=== PATIENT | male | born 1960 | race Caucasian/White ===

== ENCOUNTER 2018-03-22 00:58 | Inpatient (IN) | payer OTHER ==
[2018-03-21 13:25] LABS: INR 0.91
--- NOTE | 2018-03-21 20:04 | HISTORY AND PHYSICAL ---
DATE OF ADMISSION: March 22, 2018 IDENTIFICATION AND CHIEF COMPLAINT Herb is a 56-year-old gentleman with the chief complaint of bilateral knee pain and disability, progressively painful and refractory to conservative care. PAST MEDICAL HISTORY * Hypertension, controlled on medication. * Remote history of bronchitis. * Remote history of tonsillitis. * Occasional reactive airway disease, induced by dander. * Type 2 diabetes. PAST SURGICAL HISTORY * Colonoscopy. ALLERGIES He has no known drug allergies. CURRENT MEDICATIONS * Albuterol inhaler p.r.n. * Losartan 100 mg p.o. q. day. * Metformin 500 mg p.o. b.i.d. * Simvastatin 40 mg p.o. q. day. * Tamsulosin 0.4 mg p.o. q. day. FAMILY HISTORY Noncontributory. SOCIAL HISTORY Negative for tobacco and alcohol use. He did chew for about 10 years, but quit six years ago. He has a remote history of social drinking. He does not drink at all presently. PHYSICAL EXAMINATION GENERAL: This gentleman is a well-developed, well-nourished male, appears stated age. HEENT: Normocephalic, atraumatic. NECK: Supple. LUNGS: Clear. HEART: Regular. ABDOMEN: Soft. ORTHOPEDIC: Knees both have effusion present and crepitus noted. He is stiff at end-range. Gross stability is intact. Extensor function intact. Skin is in good condition. Calves nontender. Neurovascular function intact distally. RADIOGRAPHS Demonstrate bilateral end-stage knee DJD. ASSESSMENT * Bilateral knee end-stage degenerative joint disease, progressively painful and debilitating, refractory to conservative care. PLAN Patient has opted to proceed with single-stage bilateral knee replacement. Nature of this procedure, risks, benefits, and nonoperative alternatives are reviewed, as well as the relative risks and benefits of staged versus single stage knee replacement. The risks of the procedure include, but are not limited to , major medical or anesthetic complication, infection, neurovascular injury, blood transfusion, stiffness, scarring, fracture, tendon rupture, instability, implant loosening, migration, or failure, persistent or recurrent pain, need for additional surgery, and other unforeseen. He understands and wishes to proceed. Signed permit is placed in the chart. No guarantees are given or implied. [facility]
[2018-03-22] VITALS (13 sets, daily range): BP systolic 130–180; BP diastolic 91–108
[~2018-03-22] VITALS: Ht 170.2 cm; Wt 123.4 kg
[~2018-03-22 00:58] MED LIST: ACETAMINOPHEN 500 MG TAB PO ONE; ALBU8.5H IH; CELECOXIB 200 MG CAP PO ONE; DOXY-179 PO; FAMOTIDINE 20 MG TAB PO ONE; FLUT16SP19 NS; LIDOCAINE/SOD BICARB 8.4% SYR ID ONE; LOSA100T67 PO; METF-411 PO; MIDAZOLAM 2 MG/2 ML VIAL IVP PRN; NORMOSOL R SOLN(*) 1000 ML BAG 1,000 ML IV PRN; PREGABALIN 150 MG CAPSULE PO ONE; SIMV-54 PO; TAMS0.4C25 PO; TRANEXAMIC AC 1000 MG/10ML SDV 1,000 MG in DEXTROSE 5% 50 ML BAG 50 ML IV ONE; ceFAZolin(*) 2GM/D5W 50ML 50 ML IVPB ONE; cloNIDine EPIDUR INJ 100MCG/ML 40 MCG, ROPIVACAINE 0.5% 20 ML VIAL 25 ML, EPINEPHrine H... INJ ONE
[2018-03-22] MEDS ORDERED: LIDOCAINE MPF 1% 5 ML VIAL ONE (10:51)
[2018-03-22] MEDS ORDERED: fentaNYL CITR 100 MCG/2 ML AMP ONE ×3 (10:51→17:12)
[2018-03-22] MEDS ORDERED: PROPOFOL EMUL(*) 10MG/ML 20 ML 20 ML ONE (10:51)
[2018-03-22] MEDS ORDERED: ONDANSETRON 4 MG/2 ML VIAL ONE ×2 (10:51)
[2018-03-22] MEDS ORDERED: DEXAMETHASONE SOD 4 MG/ML VIAL ONE ×2 (10:51)
[2018-03-22] MEDS ORDERED: KETAMINE HCL 500 MG/10 ML VIAL ONE (10:56)
[2018-03-22] MEDS ORDERED: ACETAMINOPHEN 500 MG TAB PO ONE (11:15)
[2018-03-22] MEDS ORDERED: PREGABALIN 150 MG CAPSULE PO ONE (11:15)
[2018-03-22] MEDS ORDERED: cloNIDine EPIDUR INJ 100MCG/ML 40 MCG, ROPIVACAINE 0.5% 20 ML VIAL 25 ML, EPINEPHrine H... INJ ONE ×2 (11:15)
[2018-03-22] MEDS ORDERED: FAMOTIDINE 20 MG TAB PO ONE (11:15)
[2018-03-22] MEDS ORDERED: MIDAZOLAM 2 MG/2 ML VIAL IVP PRN (11:15)
[2018-03-22] MEDS ORDERED: NORMOSOL R SOLN(*) 1000 ML BAG 1,000 ML IV PRN ×2 (11:15→16:40)
[2018-03-22] MEDS ORDERED: LIDOCAINE/SOD BICARB 8.4% SYR ID ONE (11:15)
[2018-03-22] MEDS ORDERED: TRANEXAMIC AC 1000 MG/10ML SDV 1,000 MG in DEXTROSE 5% 50 ML BAG 50 ML IV ONE (11:15)
[2018-03-22] MEDS ORDERED: CELECOXIB 200 MG CAP PO ONE (11:15)
[2018-03-22] MEDS ORDERED: ceFAZolin(*) 2GM/D5W 50ML 50 ML IVPB ONE (11:15)
[2018-03-22] MEDS ORDERED: FLUSH 10 ML SYR IVP PRN (16:40)
[2018-03-22] MEDS ORDERED: BENZOCAINE/MENTHOL 1 EACH LOZG PO PRN (16:40)
[2018-03-22] MEDS ORDERED: diphenhydrAMINE 50 MG/ML VIAL IVP PRN (16:40)
[2018-03-22] MEDS ORDERED: ZOLPIDEM TARTRATE 5 MG TAB PO PRN (16:40)
[2018-03-22] MEDS ORDERED: diphenhydrAMINE 25 MG CAP PO PRN (16:40)
[2018-03-22] MEDS ORDERED: ACETAMINOPHEN 325 MG TAB PO PRN (16:40)
[2018-03-22] MEDS ORDERED: PROMETHAZINE 25 MG/ML 1 ML AMP IVP PRN (16:40)
[2018-03-22] MEDS ORDERED: BISACODYL 10 MG SUPP PR PRN (16:40)
[2018-03-22] MEDS ORDERED: MAGNESIUM HYDROXIDE* 30ML UDCP PO PRN (16:40)
--- NOTE | 2018-03-22 17:10 | RADIOLOGY IMAGING REPORT ---
FACILITY: [facility] [place] PATIENT NAME: Herb Hubbard : 1960 MR: [id number] V: [id number] EXAM DATE: ORDERING PHYSICIAN: SREEKANTH DUGAN TECHNOLOGIST: [place] [facility] [place] Herb Hubbard : 1960 Visit/Account:[id number] Date of Sevice: 03/22/2018 Exam type: KNEE LIMITED RIGHT History: POST OP BILATERAL TKA Comparison: None. Findings: AP and lateral views of the right knee demonstrate a right knee arthroplasty in good anatomic alignme nt. Soft tissue gas and skin rom project over the anterior aspect this postoperative knee IMPRESSION: 1. As above Report Dictated By: Danika Ramirez MD at 03/22/2018 5:07 PM Report E-Signed By: Danika Ramirez MD at 03/22/2018 5:07 PM WSN:[email or web address]
--- NOTE | 2018-03-22 17:11 | RADIOLOGY IMAGING REPORT ---
FACILITY: [facility] - [place] PATIENT NAME: Herb Hubbard : 1960 MR: [id number] V: [id number] EXAM DATE: ORDERING PHYSICIAN: SREEKANTH DUGAN TECHNOLOGIST: Location: [facility] Patient: Herb Hubbard : 1960 Visit/Account:[id number] Date of Sevice: 03/22/2018 Exam type: KNEE LIMITED LEFT History: POST OP BILATERAL TKA Comparison: June 14, 2015. Findings: AP and lateral views left knee demonstrate a left knee arthroplasty in good anatomic alignment. Soft tissue gas and skin rom project over the anterior aspect of this postoperative knee IMPRESSION: 1. As above Report Dictated By: Danika Ramirez MD at 03/22/2018 5:07 PM Report E-Signed By: Danika Ramirez MD at 03/22/2018 5:08 PM WSN:[email or web address]
[2018-03-22] MEDS ORDERED: ALBUTEROL 8 GM INHALER INH PRN (18:15)
[2018-03-22] MEDS: CELECOXIB 200 MG CAP PO SCH (18:16)
[2018-03-22] MEDS: APAP/HYDROCODONE 325/7.5 TAB PO PRN (18:17)
--- NOTE | 2018-03-22 18:19 | Hospitalist Consultation ---
History of Present Illness Requesting Physician Dr. Mora Reason for Consult HTN, DM2, Asthma Chief Complaint s/p bilateral knee replacements History of Present Illness He was admitted s/p bilateral knee replacements. It is reported the surgery went well and without complications. History Problems: (1) Type 2 diabetes mellitus Status: Chronic (2) Hypertension Status: Chronic (3) Hyperlipidemia Status: Chronic (4) Asthma Status: Chronic Home Meds Reported Medications Tamsulosin Hcl (FLOMAX) 0.4 Mg Cap.er.24h, 0.4 MG PO HS, CAP 02/28/18 Simvastatin (SIMVASTATIN) 40 Mg Tablet, 40 MG PO HS, TAB 02/28/18 Metformin Hcl (METFORMIN HCL) 500 Mg Tablet, 2 TAB PO BID, TAB 02/28/18 Losartan Potassium (LOSARTAN POTASSIUM) 100 Mg Tablet, 100 MG PO QDAY 02/28/18 Albuterol Sulfate 90 Mcg/Act (PROAIR HFA 90 MCG/ACT) 8.5 Gm Hfa.aer.ad, 1 PUFF IH PRN, INHALER 02/28/18 Fluticasone Prop 50 Mcg Ns (FLONASE 50 MCG NS) 16 Gm [place].susp, 1 SPRAY NS BID , BOT 02/28/18 Allergies: Coded Allergies: No Known Drug Allergies (Unverified , 02/28/18) Patient History: Patient reports no known family medical history. Hx Smoking: No (CHEWED FOR ABOUT 10 YRS, QUIT 2015) Caffeine Intake: Coffee Caffeine/Cups Per Day: 3 CPD Hx Alcohol Use: No Hx Substance Use Disorder: No Review of Systems All Systems Reviewed/Normal: Yes, Except as Noted Exam Vital Signs Vital Signs Date Time Temp Pulse Resp B/P (MAP) Pulse Ox O2 Delivery O2 Flow Rate FiO2 03/22/18 17:59 95 Nasal Cannula 4.0 03/22/18 17:59 97.6 78 16 157/97 (117) General Appearance: Alert, Awake, No Acute Distress, Afebrile Neuro: No Gross deficits Cardiovascular: Regular Rate and Rhythm Respiratory: No Respiratory Distress, Clear to Auscultation Extremities: Warm, Perfused Psych: Alert & Oriented X3, Appropriate Mood & Affect Assessment and Plan Problems: (1) Status post bilateral knee replacements Status: Acute Assessment & Plan: Followed by Dr. Mora. He will be placed on Aspirin 325mg daily for DVT prophylaxis. He has no history of DVT or PE. (2) Type 2 diabetes mellitus Status: Chronic Assessment & Plan: He is on chronic treatment with Metformin. This will be held at this time. He will be started on SSI level 2 and AC/HS blood sugars. (3) Hypertension Status: Chronic Assessment & Plan: He is on chronic treatment with Losartan. This has been restarted with hold parameters. (4) Hyperlipidemia Status: Chronic Assessment & Plan: He is on chronic treatment with Simvastatin. (5) Asthma Status: Chronic Assessment & Plan: He uses albuterol as needed. (6) Morbid obesity with BMI of 40.0-44.9, adult Status: Chronic Venous Thromboembolism Antithrombotics Is Pt On Any Antithrombotics?: No Exam Sepsis Risk: No Definite Risk MIKKI DALTON SCRAPER OPERATOR Mar 22, 2018 18:19
[2018-03-22] MEDS: DIAZEPAM 5 MG TAB PO PRN (19:43)
[2018-03-22] MEDS: SIMVASTATIN 40 MG TAB PO SCH (20:17)
[2018-03-22] MEDS: TAMSULOSIN HCL 0.4 MG CAP PO SCH (20:17)
[2018-03-22] MEDS: FLUTICASONE PROP 0.05% 16 GM SCH (20:18)
[2018-03-22] MEDS: INSULIN HUM LISPRO 100 UN/ML 3 ML VIAL SUBQ PRN (20:22)
--- NOTE | 2018-03-22 20:58 | OPERATIVE REPORT 1 ---
EVENT DATE: March 22, 2018 SURGEON: Sushil Mora MD ANESTHESIOLOGIST: Gio Ca MD ANESTHESIA: General plus spinal. CLOTH COLORS EXAMINER: David Harris PA-C and MONI Hillman PREOPERATIVE DIAGNOSIS Bilateral knee degenerative joint disease. POSTOPERATIVE DIAGNOSIS Bilateral knee degenerative joint disease. PROCEDURE PERFORMED Bilateral single-stage total knee arthroplasty. ESTIMATED BLOOD LOSS Minimal. DRAINS None. SPECIMENS None. COMPLICATIONS None apparent. TOURNIQUET TIME 69 minutes on the left knee, 53 minutes on the right knee. IMPLANTS USED Implants on the left are the Herminia Triathlon knee system with 5 left PS femur , 5 standard tibial baseplate, 36 mm universal, symmetric, all-polyethylene patellar button, and a 16 mm tibial tray liner. Polyethylene is X3. On the right side, we have a #5 right PS femur, a #5 standard tibial baseplate, a 36 mm universal, symmetric, all-polyethylene patellar button, and a 13 mm PS tibial tray liner. Polyethylene is X3. INDICATIONS Herb is a 57-year-old gentleman with incapacitating pain and disability related to end-stage knee arthritis. Surgery is indicated to relieve symptoms after failure of nonoperative measures. DESCRIPTION OF PROCEDURE The patient was taken to the operating room. He was placed supine on the operating table. General anesthesia was induced after a spinal block was administered by the anesthesiologist. Antibiotics and TXA were administered IV. Both lower extremities simultaneously were prepped and draped in the usual sterile fashion for orthopedic surgery. The right leg was covered with a stockinette, and the left knee was operated on first. The limb was exsanguinated with an Esmarch bandage. Tourniquet inflated to 275 mmHg. Midline longitudinal incision made, carried down through the skin and subcutaneous tissue to the extensor mechanism. Full-thickness flaps were developed far enough medially to allow medial parapatellar arthrotomy be performed. Patella was everted. The knee was brought into the flexed position. Fat pad, anterior horns of the menisci, and the cruciate ligaments are debrided. A subperiosteal medial released is initiated in a titrated fashion to start to balance the varus knee. A step drill is used to enter the distal femur. A 10-inch long alignment guide is used to engage the isthmus, cut set for 5 degrees of valgus relative to the anatomic axis. A 10 mm resection block is applied, pinned, and cuts made with an oscillating saw. AP sizing guide is applied to the distal femoral cut, positioned for 3 degrees of external rotation relative to the posterior condyles. The size 5 is optimal without risk of notching. The four-in-one cutting block is applied. Anterior, posterior, posterior chamfer, and anterior chamfer cuts are made respectively. PS block is applied and centered. Medial and lateral bone is removed through the box. Trial femur has nice [id number] fit. Attention is turned to tibial preparation. The extramedullary guide is applied, positioned for varus, valgus, posterior slope, and rotation. This is set to take 9 mm from the relatively intact lateral tibial plateau. It is dropped down a millimeter or so to ensure an adequate cut. Block is pinned, extramedullary alignment check is made, and cuts made with an oscillating saw. There is a tiny area of severe posteromedial erosion that is not at the level of the cup, but it is felt better for bone preservation not to take additional bone and certainly adequate support for the baseplate. Here, a size 5 baseplate will be optimal without risk of overhang after removal of osteophytes. Trial tibia with the trial liner and the trial femur inserted. Knee was brought to full extension. Patella is taken from a starting thickness of 24 to a residual of 15 with a patellar clamp and oscillating saw. The 36 provides optimum bony coverage without soft tissue overhang. Lug holes are drilled. Patella tracks well with the no-touch technique. Final tibial preparation consists of assuring appropriate rotational and translational positioning of the component. The boss is reamed, and the fins are punched. Surfaces are copiously lavaged. Sclerotic bone is perforated with a small drill bit to facilitate cement interdigitation. All components cemented in a single stage. Once the cement is fully polymerized, tourniquet is deflated. Hemostasis is assured. Wound is copiously lavaged to remove all loose debris. The 16 PS liner fills up the gap ideally, allowing the knee to drop to full extension without hyperextension, providing optimal soft tissue tension and stability. Tray is lavaged and dried. The actual liner is locked into the baseplate. Arthrotomy is closed in flexion with #2 Ethibond. While the last few stitches are placed in the arthrotomy, the contralateral knee is approached. Further closure on the left knee consists of irrigation and 3-0 Vicryl for the dermis and surgical rom for the skin. An identical procedure is performed on the right knee with the exception that only a 13 PS tibial tray liner is needed to fill up the gap to allow the ideal soft tissue balance. The 13 PS liner is used and, of course, a right-sided femoral implant is used on the right knee versus a left on the left side. At the completion of the procedure, both knees are sterilely dressed. Patient is awakened from anesthesia having tolerated the procedure well. He is transferred to the recovery room in stable condition. Plan is for standard TKA rehab protocol. TRINO
[2018-03-22] MEDS: ceFAZolin(*) 1 GM VIAL 1 GM in NS(*) 0.9% 100 ML ADDVANT BAG 100 ML IVPB SCH (21:04)
[2018-03-23] VITALS (8 sets, daily range): BP systolic 110–148; BP diastolic 74–95; Ht 170.2 cm; Wt 123.4 kg
[2018-03-23] MEDS: APAP/HYDROCODONE 325/7.5 TAB PO PRN ×5 (00:38→20:34)
[2018-03-23] MEDS: DIAZEPAM 5 MG TAB PO PRN ×3 (02:58→19:38)
[2018-03-23] MEDS: ceFAZolin(*) 1 GM VIAL 1 GM in NS(*) 0.9% 100 ML ADDVANT BAG 100 ML IVPB SCH ×2 (04:15→12:28)
[2018-03-23] MEDS: CELECOXIB 200 MG CAP PO SCH ×2 (07:32→16:43)
[2018-03-23] MEDS: ASPIRIN 325 MG TAB PO SCH (08:34)
[2018-03-23] MEDS: FLUTICASONE PROP 0.05% 16 GM SCH ×2 (08:34→20:34)
[2018-03-23] MEDS ORDERED: LOSARTAN POTASSIUM 50 MG TAB PO SCH (09:00)
--- NOTE | 2018-03-23 10:54 | Hospitalist Progress Note ---
Subjective Progress Notes Subjective He has no complaints this morning. He had no acute events overnight. Patient Complains of: Cardiovascular: No: Chest Pain Respiratory: No: Shortness of Breath Physical Exam Vital Signs Date Time Temp Pulse Resp B/P (MAP) Pulse Ox O2 Delivery O2 Flow Rate FiO2 03/23/18 07:43 93 Nasal Cannula 2.0 03/23/18 07:35 98.0 79 18 138/95 (109) Intake and Output 03/24/18 01:00 Intake Total 1750 ml Output Total 1670 ml Balance 80 ml Intake Oral 1650 ml IV Total 100 ml Output Urine Total 1670 ml # Voids 4 General Appearance: Alert, Awake, No Acute Distress, Afebrile Neuro: No Gross deficits Cardiovascular: Regular Rate and Rhythm Respiratory: No Respiratory Distress, Clear to Auscultation GI: Soft and Non-Tender Psych: Alert & Oriented X3, Appropriate Mood & Affect Assessment and Plan Problems: (1) Status post bilateral knee replacements Status: Acute Assessment & Plan: Followed by Dr. Mora. He will be placed on Aspirin 325mg daily for DVT prophylaxis. He has no history of DVT or PE. (2) Type 2 diabetes mellitus Status: Chronic Assessment & Plan: He is on chronic treatment with Metformin. This will be held at this time. He will be started on SSI level 2 and AC/HS blood sugars. (3) Hypertension Status: Chronic Assessment & Plan: He is on chronic treatment with Losartan. This has been restarted with hold parameters. (4) Hyperlipidemia Status: Chronic Assessment & Plan: He is on chronic treatment with Simvastatin. (5) Asthma Status: Chronic Assessment & Plan: He uses albuterol as needed. (6) Morbid obesity with BMI of 40.0-44.9, adult Status: Chronic Exam Sepsis Risk: No Definite Risk MIKKI DALTONP Mar 23, 2018 10:54
[2018-03-23] MEDS: INSULIN HUM LISPRO 100 UN/ML 3 ML VIAL SUBQ PRN ×2 (11:18→20:40)
[2018-03-23] MEDS: TAMSULOSIN HCL 0.4 MG CAP PO SCH (20:34)
[2018-03-23] MEDS: SIMVASTATIN 40 MG TAB PO SCH (20:34)
[2018-03-24] MEDS: APAP/HYDROCODONE 325/7.5 TAB PO PRN ×2 (02:36→07:35)
[2018-03-24 02:38] VITALS: BP 164/100
[2018-03-24 05:46] LABS: PLATELET COUNT, AUTOMATED 169 K/uL (150-450)
[2018-03-24 07:30] VITALS: BP 131/83
[2018-03-24] MEDS: CELECOXIB 200 MG CAP PO SCH (07:34)
[2018-03-24] MEDS: ASPIRIN 325 MG TAB PO SCH (08:19)
[2018-03-24] MEDS: FLUTICASONE PROP 0.05% 16 GM SCH (08:19)
[2018-03-24] MEDS ORDERED: metFORMIN HCL 500 MG TAB PO SCH (09:00)
[2018-03-24] MEDS ORDERED: LOSARTAN POTASSIUM 50 MG TAB PO SCH (09:00)
--- NOTE | 2018-03-24 11:22 | Hospitalist Progress Note ---
Subjective Progress Notes Subjective He has no complaints this morning. He had no acute events overnight. Patient Complains of: Cardiovascular: No: Chest Pain Respiratory: No: Shortness of Breath Physical Exam Vital Signs Date Time Temp Pulse Resp B/P (MAP) Pulse Ox O2 Delivery O2 Flow Rate FiO2 03/24/18 09:37 Nasal Cannula 03/24/18 07:44 93 3.0 03/24/18 07:30 98.1 90 19 131/83 (99) Intake and Output 03/25/18 01:00 Intake Total 640 ml Output Total 1170 ml Balance -530 ml Intake Oral 640 ml Output Urine Total 1170 ml # Voids 2 General Appearance: Alert, Awake, No Acute Distress, Afebrile Neuro: No Gross deficits Cardiovascular: Regular Rate and Rhythm Respiratory: No Respiratory Distress, Clear to Auscultation GI: Soft and Non-Tender Psych: Alert & Oriented X3, Appropriate Mood & Affect Result Diagram: 03/24/18 0511 Assessment and Plan Problems: (1) Status post bilateral knee replacements Status: Acute Assessment & Plan: Followed by Dr. Mora. He will be placed on Aspirin 325mg daily for DVT prophylaxis. He has no history of DVT or PE. He will be transferred to [facility] for further rehabilitation. (2) Type 2 diabetes mellitus Status: Chronic Assessment & Plan: He is on chronic treatment with Metformin. He will be restarted on Metformin this morning. (3) Hypertension Status: Chronic Assessment & Plan: He is on chronic treatment with Losartan. This has been restarted with hold parameters. (4) Hyperlipidemia Status: Chronic Assessment & Plan: He is on chronic treatment with Simvastatin. (5) Asthma Status: Chronic Assessment & Plan: He uses albuterol as needed. (6) Morbid obesity with BMI of 40.0-44.9, adult Status: Chronic Exam Sepsis Risk: No Definite Risk MIKKI DALTON [facility] Mar 24, 2018 11:22
== END 2018-03-24 10:15 | DRG 462 ==
LOC: OR 00:58 → MED 17:50
PROVIDERS: ADMIT Orthopaedic Surgery; ATTEND Orthopaedic Surgery
PROC: 0SRC0J9 Replacement of Right Knee Joint with Synthetic Substitute, Cemented, Open Approach (ICD-10-PCS; 2018-03-22)
PROC: 0SRD0J9 Replacement of Left Knee Joint with Synthetic Substitute, Cemented, Open Approach (ICD-10-PCS; principal; 2018-03-22 12:58)
DX: M17.0 Bilateral primary osteoarthritis of knee (principal); Z68.41 Body mass index [BMI] 40.0-44.9, adult; I10 Essential (primary) hypertension; E78.5 Hyperlipidemia, unspecified; J45.909 Unspecified asthma, uncomplicated; G47.33 Obstructive sleep apnea (adult) (pediatric); E11.9 Type 2 diabetes mellitus without complications; E66.01 Morbid (severe) obesity due to excess calories; Z79.84 Long term (current) use of oral hypoglycemic drugs; Z87.891 Personal history of nicotine dependence
CPT/HCPCS: 36415; 36416; 82948; 85025; 85610; 86850; 86900; 86901; 97161; J0171; J0690; J0735; J1100; J1885; J2001; J2250; J2405; J2704; J2795; J3010; J3490; J3535; J7050; J7060

== ENCOUNTER → 2018-03-23 | Outpatient (CLI) | payer OTHER ==
[~2018-03-23] MED LIST changes: -ACETAMINOPHEN 500 MG TAB PO ONE; -CELECOXIB 200 MG CAP PO ONE; -FAMOTIDINE 20 MG TAB PO ONE; -LIDOCAINE/SOD BICARB 8.4% SYR ID ONE; -MIDAZOLAM 2 MG/2 ML VIAL IVP PRN; -NORMOSOL R SOLN(*) 1000 ML BAG 1,000 ML IV PRN; -PREGABALIN 150 MG CAPSULE PO ONE; -TRANEXAMIC AC 1000 MG/10ML SDV 1,000 MG in DEXTROSE 5% 50 ML BAG 50 ML IV ONE; -ceFAZolin(*) 2GM/D5W 50ML 50 ML IVPB ONE; -cloNIDine EPIDUR INJ 100MCG/ML 40 MCG, ROPIVACAINE 0.5% 20 ML VIAL 25 ML, EPINEPHrine H... INJ ONE
[2018-03-26 12:31] VITALS: BMI 43.5
== END ==
LOC: LAB 14:07
PROVIDERS: ATTEND Nurse Practitioner
DX: Z02.9 Encounter for administrative examinations, unspecified (principal)
CPT/HCPCS: 86703; 86706; 86803; 87340

== ENCOUNTER 2018-03-24 10:15 | Inpatient (IN) | payer OTHER ==
[~2018-03-24] VITALS: Ht 170.2 cm; Wt 126.1 kg
[2018-03-24] MEDS ORDERED: ACETAMINOPHEN 325 MG TAB PO PRN (10:37)
[2018-03-24] MEDS ORDERED: ALBUTEROL 8 GM INHALER INH PRN (10:37)
[2018-03-24] MEDS ORDERED: MAGNESIUM HYDROXIDE* 30ML UDCP PO PRN (10:37)
[2018-03-24] MEDS ORDERED: BISACODYL 10 MG SUPP PR PRN (10:37)
[2018-03-24 10:50] VITALS: BP 120/73
--- NOTE | 2018-03-24 10:50 | Consultant Pharmacy Review ---
Power Nut Runner Operator Review Medication Review Do All Mecications have a Diag: No (Flomax) Other General Cautions Lexicomp Interaction Analysis A = No known interaction C = Monitor therapy X = Avoid combination B = No action needed D = Consider therapy modification Drugs in this analysis: Acetaminophen; Aspirin; Bisacodyl; CeleBREX; Flomax; Flonase [DSC]; Lortab; Losartan; MetFORMIN; Milk of Magnesia [OTC]; Ventolin HFA ; Zocor * Drug-Drug Interactions D Aspirin CeleBREX (Nonsteroidal Anti-Inflammatory Agents (GARCIA-2 Selective)) Depends on Dose D Bisacodyl Milk of Magnesia [OTC] (Antacids) C Aspirin (Salicylates) MetFORMIN (Blood Glucose Lowering Agents) Depends on Dose C CeleBREX (Nonsteroidal Anti-Inflammatory Agents) Losartan (Angiotensin II Receptor Blockers) C Flomax (Hypotension-Associated Agents) Losartan (Blood Pressure Lowering Agents) B Acetaminophen Lortab (Opioid Analgesics) B Aspirin (Salicylates) Milk of Magnesia [OTC] (Antacids) Depends on Duration B CeleBREX (Nonsteroidal Anti-Inflammatory Agents) Milk of Magnesia [OTC] ( Antacids) B Flonase [DSC] (Corticosteroids) Ventolin HFA (Beta2-Agonists) Pneumococcal Vaccine HX Pneumo Vac ([id number]): No Comments Regarding the Review Beers criteria does not apply due to patient's age. Please monitor acetaminophen use and do not exceed 3 gms of acetaminophen in 24 hours. Please monitor for falls and respiratory depression due to Lortab and Valium orders. RAMIREZ WYATT Mar 24, 2018 10:43
[2018-03-24] MEDS: DIAZEPAM 5 MG TAB PO PRN (11:58)
[2018-03-24] MEDS ORDERED: INSULIN HUM LISPRO 100 UN/ML 3 ML VIAL SUBQ PRN (13:05)
[2018-03-24] MEDS: POLYETHYLENE GLYCOL 17 GM PKT PO SCH (13:18)
[2018-03-24] MEDS: DOCUSATE SODIUM 100 MG CAP PO SCH ×2 (13:18→21:15)
[2018-03-24] MEDS: APAP/HYDROCODONE 325/7.5 TAB PO PRN ×3 (14:41→21:15)
[2018-03-24 16:33] VITALS: BP 122/68
[2018-03-24] MEDS: CELECOXIB 200 MG CAP PO SCH (17:00)
[2018-03-24] MEDS: FLUTICASONE PROP 0.05% 16 GM SCH (21:00)
[2018-03-24] MEDS: metFORMIN HCL 500 MG TAB PO SCH (21:15)
[2018-03-24] MEDS: SIMVASTATIN 40 MG TAB PO SCH (21:15)
[2018-03-24] MEDS: TAMSULOSIN HCL 0.4 MG CAP PO SCH (21:15)
[2018-03-25] MEDS: DIAZEPAM 5 MG TAB PO PRN (01:18)
[2018-03-25] MEDS: APAP/HYDROCODONE 325/7.5 TAB PO PRN ×4 (04:36→20:51)
[2018-03-25 07:30] VITALS: BP 127/66
[2018-03-25] MEDS: POLYETHYLENE GLYCOL 17 GM PKT PO SCH (08:35)
[2018-03-25] MEDS: DOCUSATE SODIUM 100 MG CAP PO SCH ×2 (08:36→20:51)
[2018-03-25] MEDS: ASPIRIN 325 MG ENTERIC COATED PO SCH (08:36)
[2018-03-25] MEDS: CELECOXIB 200 MG CAP PO SCH ×2 (08:36→16:40)
[2018-03-25] MEDS: FLUTICASONE PROP 0.05% 16 GM SCH ×2 (08:36→20:51)
[2018-03-25] MEDS: metFORMIN HCL 500 MG TAB PO SCH ×2 (08:36→20:51)
[2018-03-25] MEDS: LOSARTAN POTASSIUM 50 MG TAB PO SCH (09:00)
--- NOTE | 2018-03-25 09:28 | OT ECF NOTE ---
Type of Note: Initial Note Primary Medical Diagnosis: Bilateral TKA Occupational Therapy Evaluation Date: 03-24-18 SUBJECTIVE: Prior Hospitalization: Pt. had surgery on 03/21/[address] Mora at [facility]. Prior Level of Function: Independent with all ADL/IADL activities. Prior Living Status: Alone Community Services: Independent Home Accessibility: Ramp All needs on one level Equipment Owned: Front wheeled walker Cane Toilet riser Tub/shower chair ramp into home Medical Complications/Past Medical History: Please see chart. Psychosocial Support: Supportive daughter, who resides in [place]. Pain Scale (0-10): 10/30 OBJECTIVE: Strength: WFL MMT: Right Left Shoulder Flexion [*] [*] Elbow Flexion [*] [*] Wrist Extension [*] [*] Passenger Conductor [*] [*] (5= normal, 4= good, 3= fair, 2= poor, 1= trace) ROM: Both upper extremities WFL Functional Transfer: Assistive Device: Front wheeled walker Gait belt Transfer Ability: Minimum assistance 1-person assist ADL: Upper body dressing: Assistive device: Upper body dressing ability: Independent Lower body dressing: Assistive device: Lower body dressing ability: Maximum assistance Toileting: Assistive device: BSC Toileting ability: Max A Grooming/hygiene: Seated Assistive device: Grooming ability: Set-up Bathing: Assistive device: Bathing ability: N/T Standardized Assessment: Stephanie Index of Activities of Daily Living: Pt. scored 12/20 on this Index upon evaluation. ASSESSMENT: Pt. is a 57 year old male who underwent a Bilateral TKA by Dr. Mora on 03/21/18. Pt.'s PMH consists of HTN, hyperlipidemia and asthma. Pt. is currently requiring 4-5 L of O2 to keep O2 sats above 88%. Pt. resides alone in [place] in a one level home. Pt. was independent with all ADL/IADL activities prior to surgery. Pt. needs to be completely independent with all ADL/IADL activities prior to returning to home. Problem List/Current Limitations: Pain Decreased WB Decreased activity nacho Decreased strength Decreased sensation Decreased ROM Decreased coordination Generalized weakness Short Term Goals: 1. Pt. to perform dressing activities with Mod I. 2. Pt. to perform toileting activities with Mod I. 3. Pt. to perform showering activities with Mod I. 4. Pt. to perform light meal prep with I. 5. Pt. to perform g/h activities with I. 6. Pt. to improve Stephanie Index of ADL score by 2 points. It Risk And Assurance Senior Manager Goal: Return home. Patient Goals: Return home Rehabilitation Prognosis: Good Barriers to Discharge: pain PLAN: The patient will benefit from skilled occupational therapy services 5 times per week for 2 weeks including: Ther ex ADL training Safety training Ther act IADL training Transfer training Adaptive equip training Bed mobility Thank you for this referral. If you have any questions, concerns, or comments about this report or plan, please contact me at . Yamile Dowling, OTR/L Occupational Therapy [facility]
[2018-03-25 16:45] VITALS: BP 126/74
[2018-03-25] MEDS: SIMVASTATIN 40 MG TAB PO SCH (20:51)
[2018-03-25] MEDS: TAMSULOSIN HCL 0.4 MG CAP PO SCH (20:51)
[2018-03-26] MEDS: APAP/HYDROCODONE 325/7.5 TAB PO PRN ×3 (04:38→20:26)
[2018-03-26 08:00] VITALS: BP 123/76
[2018-03-26] MEDS: POLYETHYLENE GLYCOL 17 GM PKT PO SCH (08:34)
[2018-03-26] MEDS: metFORMIN HCL 500 MG TAB PO SCH ×2 (08:34→20:26)
[2018-03-26] MEDS: FLUTICASONE PROP 0.05% 16 GM SCH ×2 (08:34→20:25)
[2018-03-26] MEDS: ASPIRIN 325 MG ENTERIC COATED PO SCH (08:34)
[2018-03-26] MEDS: DOCUSATE SODIUM 100 MG CAP PO SCH ×2 (08:34→20:25)
[2018-03-26] MEDS: CELECOXIB 200 MG CAP PO SCH ×2 (08:34→17:30)
[2018-03-26] MEDS: LOSARTAN POTASSIUM 50 MG TAB PO SCH (08:35)
[2018-03-26 12:31] VITALS: Ht 170.2 cm; Wt 126.1 kg
[2018-03-26 16:00] VITALS: BP 132/81
[2018-03-26] MEDS: SIMVASTATIN 40 MG TAB PO SCH (20:25)
[2018-03-26] MEDS: TAMSULOSIN HCL 0.4 MG CAP PO SCH (20:25)
--- NOTE | 2018-03-26 21:39 | Medical Nutrition Therapy ---
Nutrition Anthropometrics Height (Inches): 67.00 Height (Calculated Centimeters: 170.799022 Weight (Pounds): 278 Weight (Calculated Kilograms): 126.099 BMI: 43.5 Darrel Nutrition Score: Adequate Darrel Nutrition Risk Score: 17 Dietary Referral Nutrition Risk Factors: Nutrition Risk Comment: Physical Findings Physical Appearance: Morbidly Obese 40+ Skin Appearance Skin Appearance: Edema Edema Location Modifier: Both Edema Location: Leg Type of Edema: Degree of Edema: Gastrointestinal Symptoms GI Symtoms: Constipation Tube Present: Bowel Sounds: Recent Bowel Pattern: Constipated Stool Characteristics: Nutrition/Food History No Significant Nutr. HX Nutritional Diagnosis Nutritional Risk Acuity 3: Morbid Obesity Nutritional Risk Acuity 4: Good Appetite, Modified Diet Past Medical History: T2DM, HTN, hyperlipidemia Nutritional Acuity: 4-Low Nutrition Diagnosis: Over-weight/Obesity Nutrition Etiology: Physiological Causes, Inappropriate Food Choice Nutrition Problem/Etiology/Sym: Overweight/Obesity related to Excessive energy intake and Physical inactivity AEB BMI of 43.5 and physical limitations with bilateral knee arthritis resulting in bilateral knee arthroplasty. Energy Requirement: 2250 ([place]-St Jeor: Adjusted BW X 1.5) Protein Requirement: 67 (Adjusted BW Kg X .8) Fluid Requirement: 2250 Diet Type: Diabetic Nutrition Intervention: Cont diet as ordered, Teaching Nutrition Monitoring & Eval Nutrition Goals: Eat 50-100% Meal RD Patient Assessment Time: [address] Assessment Type: RD Assessment Patient Nutrition Acuity: 4-Low Follow Up Date: Mar 29, 2018 Nutritional Comment: 03/26 Pt admitted for bilateral knee replacement and transferred to ECF. Class III obesity with BMI of 43.5. T2DM treated with metformin 100mg BID and Lispro SSI. Receiving Diabetes diet with 100% consumption of first meal in ECF. Glu 111. May benefit from diabetes education. Follow intake, labs, wt, etc. -KOBI BRANCH Mar 26, 2018 21:39
[2018-03-27] MEDS: APAP/HYDROCODONE 325/7.5 TAB PO PRN ×3 (06:03→20:26)
[2018-03-27 07:20] VITALS: BP 147/93
[2018-03-27] MEDS: ASPIRIN 325 MG ENTERIC COATED PO SCH (08:49)
[2018-03-27] MEDS: metFORMIN HCL 500 MG TAB PO SCH ×2 (08:49→20:30)
[2018-03-27] MEDS: CELECOXIB 200 MG CAP PO SCH ×2 (08:49→17:44)
[2018-03-27] MEDS: FLUTICASONE PROP 0.05% 16 GM SCH ×2 (08:49→20:21)
[2018-03-27] MEDS: LOSARTAN POTASSIUM 50 MG TAB PO SCH (08:50)
[2018-03-27] MEDS: DOCUSATE SODIUM 100 MG CAP PO SCH ×2 (08:50→20:26)
[2018-03-27] MEDS: POLYETHYLENE GLYCOL 17 GM PKT PO SCH (08:51)
[2018-03-27] MEDS: DIAZEPAM 5 MG TAB PO PRN ×2 (09:49→17:46)
[2018-03-27 15:10] VITALS: BP 119/76
[2018-03-27] MEDS: TAMSULOSIN HCL 0.4 MG CAP PO SCH (20:26)
[2018-03-27] MEDS: SIMVASTATIN 40 MG TAB PO SCH (20:26)
[2018-03-28] MEDS: APAP/HYDROCODONE 325/7.5 TAB PO PRN ×3 (05:05→21:10)
[2018-03-28 07:30] VITALS: BP 110/70
[2018-03-28] MEDS: FLUTICASONE PROP 0.05% 16 GM SCH ×2 (08:34→21:00)
[2018-03-28] MEDS: CELECOXIB 200 MG CAP PO SCH ×2 (08:35→17:29)
[2018-03-28] MEDS: POLYETHYLENE GLYCOL 17 GM PKT PO SCH (08:35)
[2018-03-28] MEDS: LOSARTAN POTASSIUM 50 MG TAB PO SCH (08:35)
[2018-03-28] MEDS: DOCUSATE SODIUM 100 MG CAP PO SCH ×2 (08:35→21:10)
[2018-03-28] MEDS: metFORMIN HCL 500 MG TAB PO SCH ×2 (08:35→21:10)
[2018-03-28] MEDS: ASPIRIN 325 MG ENTERIC COATED PO SCH (08:35)
[2018-03-28] MEDS: DIAZEPAM 5 MG TAB PO PRN (14:50)
--- NOTE | 2018-03-28 15:38 | Medical Nutrition Therapy ---
Nutrition Anthropometrics Height (Inches): 67.00 Height (Calculated Centimeters: 170.085669 Weight (Pounds): 278 Weight (Calculated Kilograms): 126.099 BMI: 43.5 Darrel Nutrition Score: Adequate Darrel Nutrition Risk Score: 17 Dietary Referral Nutrition Risk Factors: Nutrition Risk Comment: Physical Findings Physical Appearance: Morbidly Obese 40+ Skin Appearance Skin Appearance: Edema Edema Location Modifier: Both Edema Location: Leg Type of Edema: Degree of Edema: Gastrointestinal Symptoms GI Symtoms: Constipation Tube Present: Bowel Sounds: Recent Bowel Pattern: Constipated Stool Characteristics: Nutritional Diagnosis Nutritional Risk Acuity 3: Morbid Obesity Nutritional Risk Acuity 4: Good Appetite, Modified Diet Past Medical History: T2DM, HTN, hyperlipidemia Nutritional Acuity: 4-Low Nutrition Diagnosis: Over-weight/Obesity Nutrition Etiology: Physiological Causes, Inappropriate Food Choice Nutrition Problem/Etiology/Sym: Overweight/Obesity related to Excessive energy intake and Physical inactivity AEB BMI of 43.5 and physical limitations with bilateral knee arthritis resulting in bilateral knee arthroplasty. Energy Requirement: 2250 ([place]-St Jeor: Adjusted BW X 1.5) Protein Requirement: 67 (Adjusted BW Kg X .8) Fluid Requirement: 2250 Diet Type: Diabetic Nutrition Intervention: Cont diet as ordered, Teaching Nutritional Education Nutrition Education Topic: Diabetic Nutrition (03/26 Education on food effects on BG) Learning Readiness: Not Interested Teaching Recipient: Patient Nutrition Counselin/6. Patient follows Atkins diet at home. Not interested at this time for education. Discussed hyperglycemic foods and portion sizes. Nutrition Monitoring & Eval Nutrition Goals: Eat 75-100% Meal, Drink > 2 liters/day RD Patient Assessment Time: [address] Assessment Type: RD Re-Assessment Patient Nutrition Acuity: 4-Low Follow Up Date: Apr 02, 2018 Nutritional Comment: 03/26 Pt admitted for bilateral knee replacement and transferred to [facility]. Class III obesity with BMI of 43.5. T2DM treated with metformin 100mg BID and Lispro SSI. Receiving Diabetes diet with 100% consumption of first meal in ECF. Glu 111. May benefit from diabetes education. Follow intake, labs, wt, etc. -DRT 03/28. Pt cont on diabetic diet, consuming 100% of meals. Nurse provided education on food effects on BG and verablized understanding (03/26). Pt continuing insulin treatment for diabetes, receiving 2-10 units Lispro. BG appropriate 107, with no significant lab concerns. Prioir to surgery pt was following Atkins Diet to help with weight loss. NAKUL AMBROSIO Mar 28, 2018 10:33
[2018-03-28 15:45] VITALS: BP 126/68
--- NOTE | 2018-03-28 16:53 | Medical Nutrition Therapy ---
Nutrition Anthropometrics Height (Inches): 67.00 Height (Calculated Centimeters: 170.185387 Weight (Pounds): 278 Weight (Calculated Kilograms): 125.787 BMI: 43.5 Darrel Nutrition Score: Adequate Darrel Nutrition Risk Score: 17 Dietary Referral Nutrition Risk Factors: Nutrition Risk Comment: Nutritional Diagnosis Nutritional Risk Acuity 3: Morbid Obesity Nutritional Risk Acuity 4: Good Appetite, Modified Diet Past Medical History: T2DM, HTN, hyperlipidemia Nutritional Acuity: 4-Low Nutrition Diagnosis: Over-weight/Obesity Nutrition Etiology: Physiological Causes, Inappropriate Food Choice Nutrition Problem/Etiology/Sym: Overweight/Obesity related to Excessive energy intake and Physical inactivity AEB BMI of 43.5 and physical limitations with bilateral knee arthritis resulting in bilateral knee arthroplasty. Energy Requirement: 2250 ([place]-St Jeor: Adjusted BW X 1.5) Protein Requirement: 67 (Adjusted BW Kg X .8) Fluid Requirement: 2250 Diet Type: Diabetic Nutrition Intervention: Cont diet as ordered, Teaching Food Dislikes: sugar free products Diet Comment To RSA: may have regular syrup = 45gm carb,: reg jelly=15gm Nutrition Monitoring & Eval RD Patient Assessment Time: [address] Assessment Type: RD Re-Assessment Patient Nutrition Acuity: 4-Low Follow Up Date: Apr 05, 2018 Nutritional Comment: 03/26 Pt admitted for bilateral knee replacement and transferred to [facility]. Class III obesity with BMI of 43.5. T2DM treated with metformin 100mg BID and Lispro SSI. Receiving Diabetes diet with 100% consumption of first meal in ECF. Glu 111. May benefit from diabetes education. Follow intake, labs, wt, etc. -DRT 03/28. Pt cont on diabetic diet, consuming 100% of meals. Nurse provided education on food effects on BG and verablized understanding (03/26). Pt continuing insulin treatment for diabetes, receiving 2-10 units Lispro. BG appropriate 107, with no significant lab concerns. Prioir to surgery pt was following Atkins Diet to help with weight loss. MR 8/6 Pt requesting regular simple sugar foods. Informed pt that they have a high GI, may be over the recommended CHO allowance, and may elevated BG.. But pt may have it as ECF is a home situation and pt can eat foods not recommended on their diet with their informed consent. SARA Miles Mar 28, 2018 16:53
[2018-03-28] MEDS: SIMVASTATIN 40 MG TAB PO SCH (21:10)
[2018-03-28] MEDS: TAMSULOSIN HCL 0.4 MG CAP PO SCH (21:10)
[2018-03-29] MEDS: APAP/HYDROCODONE 325/7.5 TAB PO PRN ×3 (03:27→17:57)
[2018-03-29 08:00] VITALS: BP 122/77
[2018-03-29] MEDS: CELECOXIB 200 MG CAP PO SCH ×2 (08:28→16:31)
[2018-03-29] MEDS: ASPIRIN 325 MG ENTERIC COATED PO SCH (08:28)
[2018-03-29] MEDS: DOCUSATE SODIUM 100 MG CAP PO SCH ×2 (08:28→20:33)
[2018-03-29] MEDS: metFORMIN HCL 500 MG TAB PO SCH ×2 (08:29→20:33)
[2018-03-29] MEDS: POLYETHYLENE GLYCOL 17 GM PKT PO SCH (08:29)
[2018-03-29] MEDS: LOSARTAN POTASSIUM 50 MG TAB PO SCH (09:00)
[2018-03-29] MEDS: FLUTICASONE PROP 0.05% 16 GM SCH ×2 (09:00→20:32)
--- NOTE | 2018-03-29 12:07 | PT ECF NOTE ---
Type of Note: Initial Note Primary Medical Diagnosis: Bilateral TKA Physical Therapy Evaluation Date: 03-24-18 SUBJECTIVE: Prior Hospitalization: Pt. had surgery on 03/21/[address] Mora at [facility]. Prior Level of Function: Independent with all ADL/IADL activities. Prior Living Status: Alone Community Services: Independent Home Accessibility: Ramp; All needs on one level Equipment Owned: Front wheeled walker, Cane, Toilet riser, Tub/shower chair, ramp into home Medical Complications/Past Medical History: Please see chart. Psychosocial Support: Supportive daughter, who resides in [place]. Pain Scale (0-10): 10/30 OBJECTIVE: Strength: B) TKA's with 3-/5 overall; pt unable to complete LAQ or SLR against gravity at this time. ROM: (please note any abnormalities) B) TKA's with R) at 0-60 and L) at 0-60 Sensation: (please note any abnormalities) Pt denies paresthesias Other Neuro findings: None reported at this time Bed Mobility: Min/Mod assist for LE's into bed Assistive device: Bed rail Transfers: Minimum assistance, Verbal cues, SBA/CGA Assistive Device: Front wheeled walker Gait: Verbal cues, SBA/CGA Assistive device: Front wheeled walker Stairs: Not yet tested; Pt notes ramp to enter home Assistive device: Timed Up and Go (>12 seconds indicated increased risk for falls): Not tested upon eval, as pt is not yet able to ambulate this distance safely 10 meter walk test (0.6m/second cannot function independently): unable to ambulate sufficient distance to determine result Other Objective Measures: n/a ASSESSMENT: Pt resides alone and indicates that he will need to be fully indep in order to discharge home safely. Pt currently requires Min/Mod assist for B) LE's in/out of bed and CGA/Min assist for sit to stand transfers from elevated surfaces. Pt will need to be able to transfer from a variety of surfaces indep and tolerate up/down ramp to enter home. Problem List/Current Limitations: Pain, Decreased WB, Decreased activity nacho , Decreased strength, Decreased ROM, Decreased balance Short Term Goals: 1. Pt to be modified indep with all bed mobility and supine to/from sit transfers with leg senior power plant operator as needed 2. Pt to be modified indep with all sit to/from stand transfers from a variety of surfaces 3. Pt to tolerate ambulation of 150' with least restrictive device and modified indep 4. Pt to nacho up/down platform step to simulate curb in environment. 5.Pt to tolerate up/down ramp to simulate entry to home. Prison Goals: Pt to discharge home with further rehab to continue with basic TKA progression when functionally mobile. Patient Goals: To return home when he is able to take care of himself Rehabilitation Prognosis: Good Barriers for Discharge: Pt resides alone PLAN: The patient will benefit from skilled physical therapy services 5 times per week for 2 weeks including: Therapeutic Exercise, Therapeutic Activities Transfer Training, Gait Training, Stair Training, ADL's, Safety Training, Pt/ Caregiver Training, Bed Mobility Thank you for this referral. If you have any questions, concerns, or comments about this report or plan, please contact me at . H. Divine Kaplan, PT, MPT MTDD
[2018-03-29 15:31] VITALS: BP 138/77
[2018-03-29] MEDS: SIMVASTATIN 40 MG TAB PO SCH (20:33)
[2018-03-29] MEDS: TAMSULOSIN HCL 0.4 MG CAP PO SCH (20:33)
[2018-03-30] MEDS: APAP/HYDROCODONE 325/7.5 TAB PO PRN ×3 (01:23→18:31)
[2018-03-30 07:30] VITALS: BP 131/74
[2018-03-30] MEDS: ASPIRIN 325 MG ENTERIC COATED PO SCH (08:37)
[2018-03-30] MEDS: POLYETHYLENE GLYCOL 17 GM PKT PO SCH (08:37)
[2018-03-30] MEDS: CELECOXIB 200 MG CAP PO SCH ×2 (08:37→17:22)
[2018-03-30] MEDS: FLUTICASONE PROP 0.05% 16 GM SCH (08:37)
[2018-03-30] MEDS: metFORMIN HCL 500 MG TAB PO SCH ×2 (08:37→20:32)
[2018-03-30] MEDS: DOCUSATE SODIUM 100 MG CAP PO SCH ×2 (08:37→20:32)
[2018-03-30] MEDS: LOSARTAN POTASSIUM 50 MG TAB PO SCH (08:38)
--- NOTE | 2018-03-30 15:55 | Hospitalist Progress Note ---
Subjective Progress Notes Subjective He has been doing well s/p bilateral knee replacement. He has no complaints. Patient Complains of: Cardiovascular: No: Chest Pain Respiratory: No: Shortness of Breath Physical Exam Vital Signs Date Time Temp Pulse Resp B/P (MAP) Pulse Ox O2 Delivery O2 Flow Rate FiO2 03/30/18 10:00 93 Nasal Cannula 1.0 03/30/18 07:30 98.0 73 18 131/74 (93) Intake and Output 03/31/18 07:00 Intake Total 600 ml Output Total 800 ml Balance -200 ml Intake Oral 600 ml Output Urine Total 800 ml # Bowel Movements 1 General Appearance: Alert, Awake, No Acute Distress, Afebrile Neuro: No Gross deficits Cardiovascular: Regular Rate and Rhythm Respiratory: No Respiratory Distress, Clear to Auscultation GI: Soft and Non-Tender Extremities: Warm, Perfused, No Edema Psych: Alert & Oriented X3, Appropriate Mood & Affect Assessment and Plan Problems: (1) Status post bilateral knee replacements Status: Acute Assessment & Plan: He has been doing well with therapy. He will continue Aspirin 325 mg daily for DVT prophylaxis. (2) Type 2 diabetes mellitus Status: Chronic Assessment & Plan: He is on chronic treatment with Metformin. His sugars have been well controlled. (3) Hypertension Status: Chronic Assessment & Plan: He is on chronic treatment with Losartan. This has been started with hold parameters. (4) Hyperlipidemia Status: Chronic Assessment & Plan: He is on chronic treatment with Simvastatin. (5) Asthma Status: Chronic Assessment & Plan: He uses albuterol as needed for asthma. (6) Morbid obesity with BMI of 40.0-44.9, adult Status: Chronic MIKKI DALTON [facility] Mar 30, 2018 15:55
[2018-03-30] MEDS: TAMSULOSIN HCL 0.4 MG CAP PO SCH (20:32)
[2018-03-30] MEDS: SIMVASTATIN 40 MG TAB PO SCH (20:32)
[2018-03-31] MEDS: APAP/HYDROCODONE 325/7.5 TAB PO PRN ×5 (01:00→23:19)
[2018-03-31 08:00] VITALS: BP 128/71
[2018-03-31] MEDS: ASPIRIN 325 MG ENTERIC COATED PO SCH (08:35)
[2018-03-31] MEDS: POLYETHYLENE GLYCOL 17 GM PKT PO SCH (08:35)
[2018-03-31] MEDS: metFORMIN HCL 500 MG TAB PO SCH ×2 (08:35→20:28)
[2018-03-31] MEDS: CELECOXIB 200 MG CAP PO SCH ×2 (08:35→17:40)
[2018-03-31] MEDS: DOCUSATE SODIUM 100 MG CAP PO SCH ×2 (08:35→20:27)
[2018-03-31] MEDS: FLUTICASONE PROP 0.05% 16 GM SCH (08:36)
[2018-03-31] MEDS: LOSARTAN POTASSIUM 50 MG TAB PO SCH (09:00)
--- NOTE | 2018-03-31 14:50 | OT ECF NOTE ---
Type of Note: Discharge Note Primary Medical Diagnosis: Bilateral TKA Occupational Therapy Evaluation Date: 03-24-18 SUBJECTIVE: Prior Hospitalization: Pt. had surgery on 03/21/[address] Mora at [facility]. Prior Level of Function: Independent with all ADL/IADL activities. Prior Living Status: Alone Community Services: Independent Home Accessibility: Ramp All needs on one level Equipment Owned: Front wheeled walker Cane Toilet riser Tub/shower chair Ramp into home HOB that elevates Sock aid/processing operator/long handled shoe horn Medical Complications/Past Medical History: Please see chart. Psychosocial Support: Supportive daughter, and friends who resides in [place]. Pain Scale (0-10): 10/30 OBJECTIVE: Strength: WFL MMT: Right Left Shoulder Flexion WNL WNL Elbow Flexion WNL WNL Wrist Extension WNL WNL Railroad Construction Director WNL WNL (5= normal, 4= good, 3= fair, 2= poor, 1= trace) ROM: Both upper extremities, WFL Functional Transfer: Assistive Device: Front wheeled walker Transfer Ability: Modified Independent ADL: Upper body dressing: Assistive device: None Upper body dressing ability: Independent Lower body dressing: Assistive device: Sock aid/processing operator Lower body dressing ability: Modified Independent Toileting: Assistive device: Raised toilet seat Toileting ability: Modified Independent Grooming/hygiene: Assistive device: Seated Grooming ability: Modified Independent Bathing: Assistive device: Shower chair Bathing ability: Modified Independent Standardized Assessment: Stephanie Index of Activities of Daily Living: Pt. scored 12/20 on this Index upon evaluation. 20/20 at discharge (03/31/18). ASSESSMENT: Pt. is a 57 year old male who underwent a Bilateral TKA by Dr. Mora on 03/21/18. Pt.'s PMH consists of HTN, hyperlipidemia and asthma. Pt. is currently requiring .5L of O2 to keep O2 sats above 88%. Pt. resides alone in [place] in a one level home. Pt. was independent with all ADL/IADL activities prior to surgery. Pt. has met all skilled OT goals. . Pt demonstrates good insight into safety and completing ADLs/IADLs (I)ly. Report no concerns or further needs to be addressed with OT services. Discharge skilled OT services at this time. Short Term Goals: 1. Pt. to perform dressing activities with Mod I. GOAL MET 2. Pt. to perform toileting activities with Mod I. GOAL MET 3. Pt. to perform showering activities with Mod I. GOAL MET 4. Pt. to perform light meal prep with I. GOAL MET 5. Pt. to perform g/h activities with I. GOAL MET 6. Pt. to improve Stephanie Index of ADL score by 2 points. GOAL MET Correction Goal: Return home. Patient Goals: Return home Rehabilitation Prognosis: Good Barriers to Discharge: pain PLAN: Discharge skilled OT services at this time. The patient will discharge home Wednesday04/05/18 with HH or outpatient PT. He will continue to receive skilled PT services during time on ECF. Thank you for this referral. If you have any questions, concerns, or comments about this report or plan, please contact me at . Cha Locke MS, OTR/L Occupational Therapy [facility]
[2018-03-31 18:30] VITALS: BP 132/76
[2018-03-31] MEDS: TAMSULOSIN HCL 0.4 MG CAP PO SCH (20:27)
[2018-03-31] MEDS: SIMVASTATIN 40 MG TAB PO SCH (20:27)
[2018-04-01 08:00] VITALS: BP 135/66
[2018-04-01] MEDS: metFORMIN HCL 500 MG TAB PO SCH ×2 (08:36→20:24)
[2018-04-01] MEDS: CELECOXIB 200 MG CAP PO SCH ×2 (08:36→16:48)
[2018-04-01] MEDS: ASPIRIN 325 MG ENTERIC COATED PO SCH (08:36)
[2018-04-01] MEDS: POLYETHYLENE GLYCOL 17 GM PKT PO SCH (08:36)
[2018-04-01] MEDS: LOSARTAN POTASSIUM 50 MG TAB PO SCH (08:36)
[2018-04-01] MEDS: DOCUSATE SODIUM 100 MG CAP PO SCH ×2 (08:36→20:24)
[2018-04-01] MEDS: FLUTICASONE PROP 0.05% 16 GM SCH (08:36)
[2018-04-01 17:01] VITALS: BP 126/70
[2018-04-01] MEDS: SIMVASTATIN 40 MG TAB PO SCH (20:25)
[2018-04-01] MEDS: APAP/HYDROCODONE 325/7.5 TAB PO PRN (20:25)
[2018-04-01] MEDS: TAMSULOSIN HCL 0.4 MG CAP PO SCH (20:25)
[2018-04-02 07:42] VITALS: BP 125/76
[2018-04-02] MEDS: metFORMIN HCL 500 MG TAB PO SCH ×2 (08:27→20:38)
[2018-04-02] MEDS: POLYETHYLENE GLYCOL 17 GM PKT PO SCH (08:27)
[2018-04-02] MEDS: CELECOXIB 200 MG CAP PO SCH ×2 (08:27→17:40)
[2018-04-02] MEDS: LOSARTAN POTASSIUM 50 MG TAB PO SCH (08:27)
[2018-04-02] MEDS: DOCUSATE SODIUM 100 MG CAP PO SCH ×2 (08:27→20:38)
[2018-04-02] MEDS: FLUTICASONE PROP 0.05% 16 GM SCH (08:27)
[2018-04-02] MEDS: ASPIRIN 325 MG ENTERIC COATED PO SCH (08:28)
[2018-04-02 14:10] VITALS: BP 128/69
[2018-04-02] MEDS: APAP/HYDROCODONE 325/7.5 TAB PO PRN (16:21)
[2018-04-02] MEDS: TAMSULOSIN HCL 0.4 MG CAP PO SCH (20:38)
[2018-04-02] MEDS: SIMVASTATIN 40 MG TAB PO SCH (20:38)
[2018-04-03 07:40] VITALS: BP 129/78
[2018-04-03] MEDS: APAP/HYDROCODONE 325/7.5 TAB PO PRN (08:12)
[2018-04-03] MEDS: DOCUSATE SODIUM 100 MG CAP PO SCH ×2 (08:37→21:00)
[2018-04-03] MEDS: LOSARTAN POTASSIUM 50 MG TAB PO SCH (08:37)
[2018-04-03] MEDS: ASPIRIN 325 MG ENTERIC COATED PO SCH (08:37)
[2018-04-03] MEDS: metFORMIN HCL 500 MG TAB PO SCH ×2 (08:37→21:11)
[2018-04-03] MEDS: CELECOXIB 200 MG CAP PO SCH ×2 (08:37→17:34)
[2018-04-03] MEDS: FLUTICASONE PROP 0.05% 16 GM SCH (08:38)
[2018-04-03] MEDS: POLYETHYLENE GLYCOL 17 GM PKT PO SCH (08:39)
[2018-04-03 15:15] VITALS: BP 126/72
[2018-04-03] MEDS: SIMVASTATIN 40 MG TAB PO SCH (21:11)
[2018-04-03] MEDS: TAMSULOSIN HCL 0.4 MG CAP PO SCH (21:11)
[2018-04-04 07:40] VITALS: BP 132/82
[2018-04-04] MEDS: DOCUSATE SODIUM 100 MG CAP PO SCH ×2 (08:23→20:51)
[2018-04-04] MEDS: LOSARTAN POTASSIUM 50 MG TAB PO SCH (08:23)
[2018-04-04] MEDS: CELECOXIB 200 MG CAP PO SCH ×2 (08:23→17:18)
[2018-04-04] MEDS: metFORMIN HCL 500 MG TAB PO SCH ×2 (08:23→20:50)
[2018-04-04] MEDS: ASPIRIN 325 MG ENTERIC COATED PO SCH (08:23)
[2018-04-04] MEDS: FLUTICASONE PROP 0.05% 16 GM SCH (08:24)
[2018-04-04] MEDS: POLYETHYLENE GLYCOL 17 GM PKT PO SCH (08:24)
[2018-04-04] MEDS: APAP/HYDROCODONE 325/7.5 TAB PO PRN (08:24)
--- NOTE | 2018-04-04 09:19 | HISTORY AND PHYSICAL ---
DATE OF ADMISSION: March 22, 2018 IDENTIFICATION AND CHIEF COMPLAINT Herb is a 56-year-old gentleman with the chief complaint of bilateral knee pain and disability, progressively painful and refractory to conservative care. PAST MEDICAL HISTORY * Hypertension, controlled on medication. * Remote history of bronchitis. * Remote history of tonsillitis. * Occasional reactive airway disease, induced by dander. * Type 2 diabetes. PAST SURGICAL HISTORY * Colonoscopy. ALLERGIES He has no known drug allergies. CURRENT MEDICATIONS * Albuterol inhaler p.r.n. * Losartan 100 mg p.o. q. day. * Metformin 500 mg p.o. b.i.d. * Simvastatin 40 mg p.o. q. day. * Tamsulosin 0.4 mg p.o. q. day. FAMILY HISTORY Noncontributory. SOCIAL HISTORY Negative for tobacco and alcohol use. He did chew for about 10 years, but quit six years ago. He has a remote history of social drinking. He does not drink at all presently. PHYSICAL EXAMINATION GENERAL: This gentleman is a well-developed, well-nourished male, appears stated age. HEENT: Normocephalic, atraumatic. NECK: Supple. LUNGS: Clear. HEART: Regular. ABDOMEN: Soft. ORTHOPEDIC: Knees both have effusion present and crepitus noted. He is stiff at end-range. Gross stability is intact. Extensor function intact. Skin is in good condition. Calves nontender. Neurovascular function intact distally. RADIOGRAPHS Demonstrate bilateral end-stage knee DJD. ASSESSMENT * Bilateral knee end-stage degenerative joint disease, progressively painful and debilitating, refractory to conservative care. PLAN Patient has opted to proceed with single-stage bilateral knee replacement. Nature of this procedure, risks, benefits, and nonoperative alternatives are reviewed, as well as the relative risks and benefits of staged versus single stage knee replacement. The risks of the procedure include, but are not limited to , major medical or anesthetic complication, infection, neurovascular injury, blood transfusion, stiffness, scarring, fracture, tendon rupture, instability, implant loosening, migration, or failure, persistent or recurrent pain, need for additional surgery, and other unforeseen. He understands and wishes to proceed. Signed permit is placed in the chart. No guarantees are given or implied. <Electronically signed by SREEKANTH DUGAN MD> D/ [id number] HAY/JOHNATHON CC: SREEKANTH DUGAN MD H&P ADDENDUM The above issues are resolving. [facility] and[facility]or skilled rehabilitation. Patient is ready for transfer to [facility]. Any change in condition is described below. MTDD
[2018-04-04] MEDS ORDERED: DOCU-416 PO (13:45)
[2018-04-04] MEDS ORDERED: CELE-1 PO (13:52)
[2018-04-04] MEDS ORDERED: ASPI325T22 PO (13:53)
--- NOTE | 2018-04-04 14:11 | Medical Nutrition Therapy ---
Physical Findings Physical Appearance: Morbidly Obese 40+ Skin Appearance Skin Appearance: Edema Edema Location Modifier: Both Edema Location: Leg Type of Edema: Degree of Edema: 1+ Gastrointestinal Symptoms GI Symtoms: Change in Bowel Pattern Tube Present: Bowel Sounds: Recent Bowel Pattern: Constipated Stool Characteristics: Nutritional Diagnosis Nutritional Risk Acuity 3: Morbid Obesity Nutritional Risk Acuity 4: Good Appetite, Modified Diet Past Medical History: T2DM, HTN, hyperlipidemia Nutritional Acuity: 4-Low Nutrition Diagnosis: Over-weight/Obesity Nutrition Etiology: Physiological Causes, Inappropriate Food Choice Nutrition Problem/Etiology/Sym: Overweight/Obesity related to Excessive energy intake and Physical inactivity AEB BMI of 43.5 and physical limitations with bilateral knee arthritis resulting in bilateral knee arthroplasty. Energy Requirement: 2250 ([place]-St Jeor: Adjusted BW X 1.5) Protein Requirement: 67 (Adjusted BW Kg X .8) Fluid Requirement: 2250 Diet Type: Diabetic Nutrition Intervention: Cont diet as ordered, Teaching Food Dislikes: sugar free products Diet Comment To RSA: may have regular syrup = 45gm carb,: reg jelly=15gm Nutrition Monitoring & Eval Nutrition Goals: Eat 50-100% Meal, Drink > 2 liters/day RD Patient Assessment Time: [address] Assessment Type: RD Re-Assessment Patient Nutrition Acuity: 4-Low Follow Up Date: Apr 12, 2018 Nutritional Comment: 03/26 Pt admitted for bilateral knee replacement and transferred to [facility]. Class III obesity with BMI of 43.5. T2DM treated with metformin 100mg BID and Lispro SSI. Receiving Diabetes diet with 100% consumption of first meal in ECF. Glu 111. May benefit from diabetes education. Follow intake, labs, wt, etc. -DRT 03/28. Pt cont on diabetic diet, consuming 100% of meals. Nurse provided education on food effects on BG and verablized understanding (03/26). Pt continuing insulin treatment for diabetes, receiving 2-10 units Lispro. BG appropriate 107, with no significant lab concerns. Prioir to surgery pt was following Atkins Diet to help with weight loss. MR / Pt requesting regular simple sugar foods. Informed pt that they have a high GI, may be over the recommended CHO allowance, and may elevated BG.. But pt may have it as F is a home situation and pt can eat foods not recommended on their diet with their informed consent. bk 04/04. Pt not experiencing much pain. Is continuing to follow diabetic diet and is consuming 75-100% of meals. Lispro was D/C and is receiving 1000mg BID Metformin. No labs were avilable for pt. Will cont to monitor pts labs and diet. SUTHERLANDNAKUL Apr 04, 2018 10:55
[2018-04-04 16:38] VITALS: BP 141/89
[2018-04-04] MEDS: TAMSULOSIN HCL 0.4 MG CAP PO SCH (20:50)
[2018-04-04] MEDS: SIMVASTATIN 40 MG TAB PO SCH (20:51)
[2018-04-05 07:40] VITALS: BP 128/89
[2018-04-05] MEDS ORDERED: HYDR-4309 PO (07:49)
[2018-04-05] MEDS: POLYETHYLENE GLYCOL 17 GM PKT PO SCH (08:46)
[2018-04-05] MEDS: DOCUSATE SODIUM 100 MG CAP PO SCH (08:46)
[2018-04-05] MEDS: CELECOXIB 200 MG CAP PO SCH (08:46)
[2018-04-05] MEDS: metFORMIN HCL 500 MG TAB PO SCH (08:46)
[2018-04-05] MEDS: ASPIRIN 325 MG ENTERIC COATED PO SCH (08:46)
[2018-04-05] MEDS: FLUTICASONE PROP 0.05% 16 GM SCH (08:47)
[2018-04-05] MEDS: LOSARTAN POTASSIUM 50 MG TAB PO SCH (08:47)
[2018-04-05] MEDS: APAP/HYDROCODONE 325/7.5 TAB PO PRN (09:38)
--- NOTE | 2018-04-05 12:53 | PT ECF NOTE ---
Type of Note: Discharge Summary Primary Medical Diagnosis: Bilateral TKA Physical Therapy Discharge Date: 04-05-18 SUBJECTIVE: Prior Hospitalization: Pt. had surgery on 03/21/[address] Mora at [facility]. Prior Level of Function: Independent with all ADL/IADL activities. Prior Living Status: Alone Community Services: Independent Home Accessibility: Ramp; All needs on one level Equipment Owned: Front wheeled walker, Cane, Toilet riser, Tub/shower chair, ramp into home Medical Complications/Past Medical History: Please see chart. Psychosocial Support: Supportive daughter, who resides in [place]. Pain Scale (0-10): 210 OBJECTIVE: Strength: R) LE Hip flexion: 4/5 Knee extension: 3+/5 Knee flexion: 4/5 DF: 4/5 L) LE Hip flexion: 4/5 Knee extension: 3+/5 Knee flexion: 4/5 DF: 4/5 ROM:B) TKA's R) LE: 1-87 degrees L) LE: 1-88 degrees Sensation: intact light touch sensation Other Neuro findings: None reported at this time Bed Mobility: Mary Transfers: Mary with RW Gait: Mary x2000' with RW Stairs: Mary up/down curb/platform step Timed Up and Go (>12 seconds indicated increased risk for falls): 13 seconds ASSESSMENT: The patient has met all PT goals and is safe to d/c home from a mobility stand point when medically appropriate. The patient is Mary with all functional mobility and has demonstrated the ability to safely complete all transfers and gait with adequate independence to allow for safe d/c home. The patient plans to continue with OP PT services upon d/c and will have assistance from family as needed at home. Problem List/Current Limitations: Pain, Decreased strength, Decreased ROM Short Term Goals: (all met) 1. Pt to be modified indep with all bed mobility and supine to/from sit transfers with leg junior software engineer as needed 2. Pt to be modified indep with all sit to/from stand transfers from a variety of surfaces 3. Pt to tolerate ambulation of 150' with least restrictive device and modified indep 4. Pt to nacho up/down platform step to simulate curb in environment. 5.Pt to tolerate up/down ramp to simulate entry to home. Plastic Surgery Manager Goals: Pt to discharge home with further rehab to continue with basic TKA progression when functionally mobile (met) Patient Goals: To return home when he is able to take care of himself (met) PLAN: The patient will discharge home with OP PT services in place, he will have assistance from family as needed. Thank you for this referral. If you have any questions, concerns, or comments about this report or plan, please contact me at . Doretha Vega, PT, DPT MTDD
--- NOTE | 2018-04-20 10:18 | LEVENE DISCHARGE ---
REASON FOR ADMISSION The patient is status post single stage bilateral total knee arthroplasty admitted to the [facility] for ongoing safety and mobility training prior to discharge. HOSPITAL COURSE The patient made excellent progress in the ECF. At the time of discharge, the wound condition is benign. He is cleared by therapy for safety and mobility. He is doing quite well. DISPOSITION Discharged home. Follow up with Sushil Mora MD in two weeks in the clinic. MEDICATIONS Preoperative home medications at usual dose. Aspirin 325 p.o. every day x1 month for DVT prophylaxis, Floris for pain. DIET Ad heather. CONDITION ON DISCHARGE Stable. INSTRUCTIONS Outpatient PT per protocol. CPM four hours per day, increase motion as tolerated. Call immediately for fevers, chills, wound problems, uncontrolled pain or other concerns. TRINO
== END 2018-04-05 10:50 | disposition home or self-care (01) | DRG 560 ==
LOC: ECF 10:15
PROVIDERS: ADMIT Orthopaedic Surgery; ATTEND Orthopaedic Surgery
DX: Z47.1 Aftercare following joint replacement surgery (principal); Z68.41 Body mass index [BMI] 40.0-44.9, adult; E11.9 Type 2 diabetes mellitus without complications; I10 Essential (primary) hypertension; E78.5 Hyperlipidemia, unspecified; J45.909 Unspecified asthma, uncomplicated; E66.01 Morbid (severe) obesity due to excess calories; Z87.891 Personal history of nicotine dependence; Z79.84 Long term (current) use of oral hypoglycemic drugs; Z96.653 Presence of artificial knee joint, bilateral
CPT/HCPCS: 36416; 82948; 97161; 97165; J3535